=== PATIENT | female | born 1935 | race Caucasian/White ===

== ENCOUNTER → 2017-01-12 | Outpatient (CLI) | payer MEDICARE, OTHER ==
[~2017-01-12] MED LIST: CYMBALTA PO; DARVOCET-N 1001 TAB PO; DIOVAN PO; IBUPROFEN PO; LASIX PO; LIPITOR PO; ZYRTEC PO
--- NOTE | ~2017-01-12 | CT57 ---
[facility] A Service of [facility] RADIOLOGY TEXT RESULTS PATIENT: NABIL TONY LOCATION: [facility] CARET : 39 UNIT #: [id number] AGE: [address]: Braden Marquez MD SEX: F ORDER DR: [id number] [facility] [address] [place], [place] [address] [id number] O MR#: [id number] Acc #: [id number] NAME: NABIL TONY. : 1935 SEX: F STUDY DATE/TIME: 01/12/2017 15:04 UNIT: [facility] ROOM: STUDY DESCRIPTION: CT Chest Wo Cont Attending Physician: Braden Marquez M.D. Referring Physician: Braden Marquez M.D. Ordering Physician: Braden Marquez M.D. Primary Care Physician: Braden Marquez M.D. MEDICAL IMAGING REPORT This report is preliminary unless electronic signature is present EXAM Chest CT no contrast, 01/12/2017 INDICATION Pulmonary nodule followup. Tobacco abuse. TECHNIQUE Noncontrast CT chest was performed. This CT exam was performed with one or more of the following radiation dose reduction techniques: automatic exposure control, adjustment of mA and/or kV according to patient size, and iterative reconstruction. COMPARISON 05/09/[address] CHEST: There has been interval enlargement of a subpleural nodule in the posterior superior segment left lower lobe. It now measures about 11.0 x 11.0 mm, previously measuring 6.0 mm. The margins are irregular slightly spiculated. The appearance is suspicious for malignancy. This could be further assessed with PET/CT to assess metabolic activity. Tissue sampling could also be pursued. There is a stable subpleural nodule in the posterior medial left lower lobe measuring 10.0 x 9.0 mm, measuring 9.0 x 8.0 mm on the 2012 study and therefore not significantly changed. This was also PET negative on 01/16/2012 PET/CT. No additional new suspicious pulmonary nodule. Stable subpleural nodularity in the right middle lobe. Scattered areas of atelectasis/scarring present along with old healed granulomatous disease. Included thyroid is heterogeneous but unchanged. This can be further assessed with non-emergent outpatient ultrasound. No adenopathy or pericardial effusion. [facility] A Service of [facility] RADIOLOGY TEXT RESULTS PATIENT: NABIL TONY LOCATION: [facility] : 39 UNIT #: [id number] AGE: [address]: Braden Marquez MD SEX: F ORDER DR: Included upper abdomen demonstrates surgical absence of the gallbladder. There is atrophy of the pancreas. Kidneys are also atrophic and demonstrate cortical scarring. There is no suspicious bone lesion. IMPRESSION 1. Abnormal examination. There is a spiculated subpleural enlarging nodule in the superior segment of the left lower lobe now measuring 11.0 x 11.0 mm, previously 6.0 mm. Findings are suspicious for malignancy. Suggest further evaluation with PET/CT. This may also be amenable to tissue sampling. 2. Stable subpleural nodule in the posteromedial left lower lobe measuring 10.0 x 9.0 mm, not significantly changed from 2013. 3. Upper abdomen demonstrates no acute findings. STAT * RESULT Dictated by... Alexandre Pisano M.D. THIS IS AN ELECTRONICALLY VERIFIED REPORT Alexandre Pisano M.D. at 01/13/2017 5:16 PM Lakeisha TD: 01/13/2017 07:58 JOB #: [id number] MEDICAL IMAGING REPORT Page 1 of 1 COPY
== END | disposition home or self-care (01) ==
LOC: CCAT 14:01
DX: R91.1 Solitary pulmonary nodule (principal); R93.8 Abnormal findings on diagnostic imaging of other specified body structures; R91.8 Other nonspecific abnormal finding of lung field; Z72.0 Tobacco use
CPT/HCPCS: 71250